=== PATIENT | female | born 1980 | race African-American/Black ===

== ENCOUNTER 2022-08-29 11:40 | Outpatient (REF) | payer OTHER, SELFPAY ==
[2022-08-29 13:49] LABS: MANUAL DIFF FLAG NO
[2022-08-29 13:56] LABS: Basophils Absolute Auto 0.1 X10*3/uL (0.0-0.2); Basophils Percent Auto 1.4 % (0-2); Eosinophils Absolute Auto 0.1 X10*3/uL (0.0-0.4); Eosinophils Percent Auto 1.2 % (0-4); Hematocrit 38.7 % (37.0-47.0); Hemoglobin 12.4 g/dl (12.0-16.0); Imm Gran Abs Auto 0.01 X10*3/uL (0.00-0.03); Imm Gran Pct Auto 0.2 % (0.0-0.4); Lymphocytes Absolute Auto 2.4 X10*3/uL (1.2-4.9); Lymphocytes Percent Auto 48.1 % (20-40); Mean Corpuscular Hemoglobin 26.3 pg (27.0-33.0); Monocytes Absolute Auto 0.4 X10*3/uL (0.1-1.2); Monocytes Percent Auto 8.2 % (2-11); Neutrophils Percent Auto 40.9 % (45-73); Platelet Count 311 X10*3/uL (160-400); Red Blood Count 4.72 X10*6/uL (4.20-5.50); Red Cell Distribution Width 13.9 % (11.0-16.0)
[2022-08-29 14:24] LABS: Alanine Aminotransferase 10 U/L (0-31); Albumin Level 4.2 g/dL (3.5-5.0); Alkaline Phosphatase 51 U/L (39-117); Anion Gap 14 (12-20); Aspartate Amino Transferase 14 U/L (5-31); Bilirubin Total 0.6 mg/dL (0.0-1.0); Blood Urea Nitrogen 13 mg/dL (9-16); Calcium 9.2 mg/dL (8.4-10.2); Carbon Dioxide 25 mmol/L (22-29); Chloride 105 mmol/L (96-108); Cholesterol 201 mg/dL; Estimated Glomerular Filt Rate > 60; Glucose Fasting 71 mg/dL (60-99); HDL Cholesterol 47 mg/dL; LDL Cholesterol Calculated 131 mg/dl; Potassium 4.6 mmol/L (3.3-5.1); Sodium 139 mmol/L (135-145); Total Protein 6.9 g/dL (6.5-8.0); Triglycerides 117 mg/dL
[2022-08-29 14:54] LABS: Thyroid Stimulating Hormone 1.67 uIU/mL (0.32-4.0)
== END 2022-08-29 11:41 | disposition home or self-care (01) ==
LOC: HO.10HDL 11:40
PROVIDERS: Visit Provider Internal Medicine
DX: Z00.00 Encounter for general adult medical examination without abnormal findings (principal); Z13.31 Encounter for screening for depression; J30.89 Other allergic rhinitis
CPT/HCPCS: 36415; 80053; 80061; 84443; 85025

== ENCOUNTER 2024-04-29 08:26 | Outpatient (REF) | payer OTHER, SELFPAY ==
[2024-04-29 11:49] LABS: Cholesterol 162 mg/dL (<200); HDL Cholesterol 46 mg/dL (>40); LDL Cholesterol Calculated 103 mg/dL (<100); Triglycerides 69 mg/dL (<150)
[2024-04-29 11:57] LABS: HBS Num1 0.14 mIU/mL (0-7.99); ~Hepatitis B Surface Antibody NONREACTIVE (Nonreactive)
[2024-04-30 22:08] LABS: Rubella IgG Antibody 3.05 Index
[2024-05-01 11:59] LABS: Hepatitis B Viral DNA Qn - cp NOT DETECTED Log IU/mL (NOT DETECTED); Hepatitis B Viral DNA Qn-IU/mL NOT DETECTED (NOT DETECTED)
[2024-05-02 08:28] LABS: TS Negative Control Passed; TS Panel A 22; TS Panel B 5; TS Positive Control Passed; TSpotTB Positive (Negative)
== END 2024-04-29 08:27 | disposition home or self-care (01) ==
LOC: HO.10HDL 08:26
PROVIDERS: Visit Provider Internal Medicine
DX: E78.00 Pure hypercholesterolemia, unspecified (principal); J30.89 Other allergic rhinitis; Z11.1 Encounter for screening for respiratory tuberculosis; Z68.29 Body mass index [BMI] 29.0-29.9, adult
CPT/HCPCS: 36415; 80061; 86481; 86706; 86735; 86762; 86765; 86787; 87517

== ENCOUNTER 2024-05-05 16:42 | Outpatient (REF) | payer OTHER, SELFPAY ==
--- NOTE | ~2024-05-05 | XR_ITS ---
EXAMINATION: XR CHEST CLINICAL INFORMATION: Positive TB test COMPARISON: None available. TECHNIQUE: 2 views of the chest were obtained. FINDINGS: No significant abnormality is noted involving the heart, lungs, mediastinum, bony thorax or soft tissues. XR/XR chest 2V IMPRESSION: Unremarkable examination.
== END 2024-05-05 16:43 | disposition home or self-care (01) ==
LOC: HO.XRAY 16:42
PROVIDERS: PCP Internal Medicine; Visit Provider Internal Medicine
DX: R76.11 Nonspecific reaction to tuberculin skin test without active tuberculosis (principal)
CPT/HCPCS: 71046

== ENCOUNTER 2024-05-07 08:47 | Outpatient (REF) | payer OTHER, SELFPAY ==
[2024-05-07 12:12] LABS: Alanine Aminotransferase 9 U/L (0-31); Albumin Level 3.9 g/dL (3.5-5.0); Alkaline Phosphatase 45 U/L (39-117); Anion Gap 7 (12-20); Aspartate Amino Transferase 14 U/L (5-31); Bilirubin Total 0.8 mg/dL (0.0-1.0); Blood Urea Nitrogen 8 mg/dL (9-16); Carbon Dioxide 28 mmol/L (22-29); Chloride 108 mmol/L (96-108); Estimated Glomerular Filt Rate > 60; Glucose Random 94 mg/dL (60-115); Potassium 4.2 mmol/L (3.3-5.1); Sodium 139 mmol/L (135-145); Total Protein 6.8 g/dL (6.5-8.0)
== END 2024-05-07 08:48 | disposition home or self-care (01) ==
LOC: HO.10HDL 08:47
PROVIDERS: Visit Provider Internal Medicine
DX: R76.11 Nonspecific reaction to tuberculin skin test without active tuberculosis (principal); Z28.39 Other underimmunization status
CPT/HCPCS: 36415; 80053